=== PATIENT | male | born 1985 | race Caucasian/White ===

== ENCOUNTER → 2023-11-17 | Outpatient (CLI) | payer SELFPAY ==
[2023-11-17 11:13] LABS: BASO % 0.4 % (0.0-2.0); EOS # 0.1 K/mm3 (0.0-0.7); EOS % 1.7 % (0.0-4.0); GRAN # 4.8 K/mm3 (1.4-6.5); GRAN % 64.2 % (42.2-75.2); HEMATOCRIT 42.7 % (42.0-52.0); LYMPH # 1.8 K/mm3 (1.2-3.4); LYMPH % 24.4 % (20.0-51.0); MEAN CELL VOLUME 87 fl (80.0-100.0); MEAN CORPUSCULAR HEMOGLOBIN 31 pg (27-31); MEAN CORPUSCULAR HGB CONC 35 g/dl (33.0-37.0); MEAN PLATELET VOLUME 10.5 fl (7.4-10.4); MONO # 0.7 K/mm3 (0.1-0.6); MONO % 9.2 % (1.7-9.3); PLATELET COUNT 226 K/mm3 (130-400); RED BLOOD COUNT 4.92 M/mm3 (4.20-5.60); REDCELL DISTRIBUTION WIDTH-CV 11.4 % (11.5-14.5)
[2023-11-17 11:20] LABS: ERYTHROCYTE SEDIMENTATION RATE 16 mm/hr (0-15)
== END ==
LOC: COL.LAB 10:17
PROVIDERS: Physician Assistant
DX: M25.461 Effusion, right knee (principal)